=== PATIENT | female | born 1930 | race Caucasian/White ===

== ENCOUNTER 2017-01-07 20:26 | Observation (INO) | payer MEDICARE, BC ==
[2017-01-07] MEDS ORDERED: Haloperidol Lactate 5 MG/ML SDV IM ONE (20:27)
[2017-01-07] MEDS ORDERED: Haloperidol Lactate 5 MG/ML SDV ONE (20:28)
[2017-01-07] MEDS ORDERED: Sodium Chloride 0.9% 1,000 ML IV ONE (20:29)
[2017-01-07] MEDS ORDERED: LORazepam 2 MG/ML MDV IVPUSH ONE (21:01)
--- NOTE | 2017-01-07 21:16 | EDM.PDOC ---
ED HPI GENERAL MEDICAL PROBLEM - General Chief Complaint: Behavioral/Psych Stated Complaint: MEMORY LOSS Time Seen by Provider: 01/07/17 20:29 Source of Information: Reports: Family History Limitations: Reports: No Limitations - History of Present Illness INITIAL COMMENTS - FREE TEXT/NARRATIVE: HISTORY AND PHYSICAL: History of present illness: Patient is an 86-year-old female who presents to the emergency room by [facility] with concerns of altered mental status. The daughter who called the ambulance states that she has been yelling out, combative, and not acting herself. Daughter states that this has happened in the past several times and she was diagnosed with low sodium and UTI and required admission. Normal baseline for patient is ambulatory, alert but disoriented and needing minimal help with self-cares. He should does have a history of Alzheimer's disease. Upon arrival to the emergency room patient is yelling out, flailing her arms and hitting at staff as they are trying to obtain a blood pressure. Daughter states that the patient lives with multiple family members, they all monitor the patient as she has had multiple falls in the past. Daughter states the last fall was in August/September and had no consequences of that. Review of systems: As per history of present illness and below otherwise all systems reviewed and negative. Past medical history: As per history of present illness and as reviewed below otherwise noncontributory. Surgical history: As per history of present illness and as reviewed below otherwise noncontributory. Social history: No reported history of drug or alcohol abuse. Family history: As per history of present illness and as reviewed below otherwise noncontributory. Physical exam: Gen.: Disoriented patient who is yelling out nonsensical statements. Reports easy and even. HEENT: Atraumatic, normocephalic, pupils reactive, negative for conjunctival pallor or scleral icterus, mucous membranes dry, throat clear, neck supple, nontender, trachea midline. Lungs: Clear to auscultation, breath sounds equal bilaterally, chest nontender. Heart: S1S2, regular rate and rhythm Abdomen: Soft, nondistended, nontender. Negative for masses or hepatosplenomegaly. Negative for costovertebral tenderness. Pelvis: Stable nontender. Genitourinary: Deferred. Rectal: Deferred. Extremities: Atraumatic, moves all extremities per self, negative for cords or calf pain. Neurovascular unremarkable. No peripheral edema noted. Neuro: Awake, alert, oriented. Cranial nerves II through XII unremarkable. Cerebellum unremarkable. Motor and sensory unremarkable throughout. Exam nonfocal. Upon arrival patient was combative and not allowing nursing cares. 5 mg of Haldol IM was given. Dr. Marks was consulted on this case. He has agreed to admit this patient for observation. 1 gram of Rocephin was ordered for suspected UTI. Dr. Martinez is made aware of this patient and assumed care. Patient will be admitted for observation. Diagnostics: CBC, CMP, troponin, EKG, one view chest, head CT Therapeutics: Haldol IM IV fluid and Ativan Impression: Altered mental status Plan: Observation admission Definitive disposition and diagnosis as appropriate pending reevaluation and review of above. Onset: Today - Related Data Allergies Allergy/AdvReac Type Severity Reaction Status Date / Time morphine Allergy Hallucinati Verified 01/07/17 20:30 ons Penicillins Allergy Cannot Verified 12/14/13 13:25 Remember Home Meds: Home Meds Aspirin 81 mg PO DAILY 01/07/17 [History] Calcium Carbonate [Calcium] 1 tab PO DAILY 01/07/17 [History] Carboxymethylcellulose Sodium [Refresh Tears] 1 ml OP BID 01/07/17 [History] Levothyroxine 150 mcg PO ACBREAKFAST 01/07/17 [History] Losartan [Cozaar] 100 mg PO DAILY 01/07/17 [History] Multivitamin [Daily Multiple Vitamin] 1 tab PO DAILY 01/07/17 [History] Sertraline [Zoloft] 100 mg PO DAILY 01/07/17 [History] Cholecalciferol (Vitamin D3) [Vitamin D3] 1,000 units PO DAILY 01/08/17 [History ] Past Medical History HEENT History: Reports: Cataract, Glaucoma, Impaired Vision, Macular Degeneration Cardiovascular History: Reports: Hypertension, Pacemaker Respiratory History: Reports: None Gastrointestinal History: Reports: GERD Genitourinary History: Reports: None 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: Neurological History: Reports: Alzheimers Disease Psychiatric History: Reports: Alzheimers Disease, Dementia Endocrine/Metabolic History: Reports: Hyperthyroidism Hematologic History: Reports: None Immunologic History: Reports: None Oncologic (Cancer) History: Reports: None Dermatologic History: Reports: None - Infectious Disease History Infectious Disease History: Reports: Chicken Pox - Past Surgical History Head Surgeries/Procedures: Reports: None HEENT Surgical History: Reports: Cataract Surgery Cardiovascular Surgical History: Reports: None GI Surgical History: Reports: None Female Surgical History: Reports: Hysterectomy Musculoskeletal Surgical History: Reports: Other (See Below) Other Musculoskeletal Surgeries/Procedures:: fracture: left pelvis, bilateral shoulder , right femus, right wrist ( 2x) left hip replacement, lumbar decompression and discetomy, left wrist fracture. Social & Family History - Tobacco Use Smoking Status *Q: Never Smoker Used Tobacco, but Quit: No - Caffeine Use Caffeine Use: Reports: Coffee - Recreational Drug Use Recreational Drug Use: No ED ROS GENERAL - Review of Systems Review Of Systems: ROS reveals no pertinent complaints other than HPI. - Physical Exam Exam: See Below (See dictation) Course - Vital Signs Last Recorded V/S: Last Vital Signs Temp 36.5 C 01/08/17 15:38 Pulse 79 01/08/17 15:38 Resp 20 01/08/17 15:38 BP 130/62 01/08/17 15:38 Pulse Ox 95 01/08/17 15:38 - Orders/Labs/Meds Orders: Medication Orders Acetaminophen (Tylenol) 650 mg PO Q6H PRN PRN Reason: Pain Artificial Tears (Refresh Plus 0.5%) 0 each EYEBOTH BID [facility] Last Admin: 01/08/17 09:49 Dose: Not Given Admin: 01/08/17 00:32 Dose: Not Given Aspirin (Aspirin) 81 mg PO DAILY [facility] Last Admin: 01/08/17 09:50 Dose: Not Given Calcium Carbonate/Glycine (Tums) 500 mg PO DAILY [facility] Last Admin: 01/08/17 09:50 Dose: Not Given Cholecalciferol (Vitamin D3) 1,000 units PO DAILY [facility] Last Admin: 01/08/17 09:50 Dose: Not Given Sodium Chloride (Normal Saline) 1,000 mls @ 50 mls/hr IV ASDIRECTED [facility] Last Admin: 01/08/17 00:05 Dose: 50 mls/hr Ceftriaxone Sodium/Dextrose 1 (gm/ Premix) 50 mls @ 100 mls/hr IV Q24H [facility] Last Admin: 01/08/17 11:45 Dose: 100 mls/hr Levothyroxine Sodium (Levothyroxine) 150 mcg PO JoeluWeThFrSa@0730 [facility] Levothyroxine Sodium (Levothyroxine) 75 mcg PO Almanzar@0730 [facility] Lorazepam (Ativan) 1 mg IVPUSH Q6H PRN PRN Reason: Agitation Losartan Potassium (Cozaar) 100 mg PO DAILY [facility] Last Admin: 01/08/17 09:48 Dose: Not Given Multivitamins/Minerals/Vitamin C (Tab-A-Ericka) 1 tab PO DAILY [facility] Last Admin: 01/08/17 09:50 Dose: Not Given Oxycodone HCl (Oxycodone) 5 mg PO Q4H PRN PRN Reason: Pain Sertraline HCl (Zoloft) 100 mg PO DAILY [facility] Last Admin: 01/08/17 09:50 Dose: Not Given Labs: Laboratory Tests 01/07/17 01/07/17 01/07/17 Range/Units 21:12 21:12 21:12 WBC 14.46 H (4.0-11.0) K/uL RBC 4.43 (4.30-5.90) M/uL Hgb 13.3 (12.0-16.0) g/dL Hct 39.1 (36.0-46.0) % MCV 88.3 (80.0-98.0) fL MCH 30.0 (27.0-32.0) pg MCHC 34.0 (31.0-37.0) g/dL RDW Std Deviation 47.8 (28.0-62.0) fl RDW Coeff of Meir 15 (11.0-15.0) % Plt Count 203 (150-400) K/uL MPV 10.60 (7.40-12.00) fL Neut % (Auto) 89.9 H (48.0-80.0) % Lymph % (Auto) 3.9 L (16.0-40.0) % [place] % (Auto) 5.8 (0.0-15.0) % Eos % (Auto) 0.1 (0.0-7.0) % Baso % (Auto) 0.3 (0.0-1.5) % Neut # (Auto) 13.0 H (1.4-5.7) K/uL Lymph # (Auto) 0.6 (0.6-2.4) K/uL [place] # (Auto) 0.8 (0.0-0.8) K/uL Eos # (Auto) 0.0 (0.0-0.7) K/uL Baso # (Auto) 0.0 (0.0-0.1) K/uL Nucleated RBC % 0.0 /100WBC Nucleated RBCs # 0 K/uL Sodium 135 L (136-146) mmol/L Potassium 3.9 (3.5-5.1) mmol/L Chloride 99 (98-110) mmol/L Carbon Dioxide 26 (21-31) mmol/L BUN 18 (6.0-23.0) mg/dL Creatinine 0.8 (0.6-1.5) mg/dL Est Cr Clr Drug Dosing TNP Estimated GFR (MDRD) > 60.0 ml/min Glucose 185 H (60-110) mg/dL Calcium 9.1 (8.8-10.8) mg/dL Total Bilirubin 0.7 (0.1-1.5) mg/dL AST 25 (5-40) IU/L ALT 17 (8-54) IU/L Alkaline Phosphatase 62 (40-150) Troponin I < 0.10 (0.0-0.29) NG/ML Total Protein 6.4 (6.0-8.0) g/dL Albumin 3.7 (3.4-4.8) g/dL Globulin 2.7 (2.0-3.5) g/dL Albumin/Globulin Ratio 1.4 (1.3-2.8) Meds: Medications Generic Name Dose Route Start Last Admin Trade Name Freq PRN Reason Stop Dose Admin Acetaminophen 650 mg 01/07/17 23:53 Tylenol PO Q6H PRN Pain Artificial Tears 0 each 01/08/17 00:07 01/08/17 09:49 Refresh Plus 0.5% EYEBOTH Not Given BID [facility] Aspirin 81 mg 01/08/17 09:00 01/08/17 09:50 Aspirin PO Not Given DAILY [facility] Calcium Carbonate/Glycine 500 mg 01/08/17 09:00 01/08/17 09:50 Tums PO Not Given DAILY [facility] Cholecalciferol 1,000 units 01/08/17 09:00 01/08/17 09:50 Vitamin D3 PO Not Given DAILY [facility] Sodium Chloride 1,000 mls @ 50 mls/hr 01/07/17 23:45 01/08/17 00:05 Normal Saline IV 50 mls/hr ASDIRECTED [facility] Administration Ceftriaxone Sodium/Dextrose 1 50 mls @ 100 mls/hr 01/08/17 12:00 01/08/17 11: 45 gm/ Premix IV 100 mls/hr Q24H [facility] Administration Levothyroxine Sodium 150 mcg 01/09/17 07:30 Levothyroxine PO MoTuWeThFrSa@0730 [facility] Levothyroxine Sodium 75 mcg 01/12/17 07:30 Levothyroxine PO Almanzar@0730 [facility] Lorazepam 1 mg 01/07/17 23:53 Ativan IVPUSH Q6H PRN Agitation Losartan Potassium 100 mg 01/08/17 09:00 01/08/17 09:48 Cozaar PO Not Given DAILY [facility] Multivitamins/Minerals/Vitamin C 1 tab 01/08/17 09:00 01/08/17 09:50 Tab-A-Ericka PO Not Given DAILY [facility] Oxycodone HCl 5 mg 01/07/17 23:53 Oxycodone PO Q4H PRN Pain Sertraline HCl 100 mg 01/08/17 09:00 01/08/17 09:50 Zoloft PO Not Given DAILY [facility] Discontinued Medications Generic Name Dose Route Start Last Admin Trade Name Freq PRN Reason Stop Dose Admin Haloperidol Lactate 5 mg 01/07/17 20:27 01/07/17 21:34 Haldol IM 01/07/17 20:28 5 mg ONETIME ONE Administration Haloperidol Lactate Confirm 01/07/17 20:28 01/08/17 00:09 Haldol Administered 01/07/17 20:29 Not Given Dose 5 mg .ROUTE .STK-MED ONE Sodium Chloride 1,000 mls @ 999 mls/hr 01/07/17 20:29 01/07/17 21:16 Normal Saline IV 01/07/17 21:29 999 mls/hr STAT ONE Administration Ceftriaxone Sodium/Dextrose 1 50 mls @ 100 mls/hr 01/07/17 22:09 01/07/17 22: 57 gm/ Premix IV 01/07/17 22:38 100 mls/hr ONETIME ONE Administration Levothyroxine Sodium 150 mcg 01/08/17 07:00 01/08/17 06:45 Levothyroxine PO Not Given DAILY@0700 [facility] Lorazepam 1 mg 01/07/17 21:01 01/07/17 21:33 Ativan IVPUSH 01/07/17 21:02 1 mg ONETIME ONE Administration Departure - Departure Time of Disposition: 22:13 Disposition: Refer to Observation Clinical Impression: Altered mental status Qualifiers: Altered mental status type: delirium Qualified Code(s): R41.0 - Disorientation , unspecified - Discharge Information
[2017-01-07 21:40] LABS: CHLORIDE,CL 99 mmol/L (98-110); SODIUM,NA 135 mmol/L (136-146)
[2017-01-07] MEDS ORDERED: cefTRIAXone 1 GM in Premix Bag 1 BAG IV ONE (22:09)
[2017-01-07] MEDS ORDERED: oxyCODONE 5 MG Tab PO PRN (23:53)
[2017-01-07] MEDS ORDERED: Acetaminophen 325 MG Tab PO PRN (23:53)
[2017-01-07] MEDS ORDERED: LORazepam 2 MG/ML MDV IVPUSH PRN (23:53)
[2017-01-08] MEDS: Sodium Chloride 0.9% 1,000 ML IV SCH ×2 (00:05→18:33)
[2017-01-08] MEDS: Carboxymethylcellulose Sodium 0.5% Ophth Soln 0.4 ML UD Box of 30 EYEBOTH SCH ×4 (00:32→20:44)
[2017-01-08] MEDS: Levothyroxine 150 MCG Tab PO SCH ×2 (06:41→06:45)
[2017-01-08] MEDS: Aspirin 81 MG Tab.Chew PO SCH ×2 (09:18→09:50)
[2017-01-08] MEDS: Calcium Carbonate 500 MG Tab.Chew PO SCH ×2 (09:18→09:50)
--- NOTE | 2017-01-08 09:18 | PCM.HP ---
H&P History of Present Illness - General Date of Service: 01/08/17 Admit Problem/Dx: Admission Diagnosis/Problem Admission Diagnosis/Problem Altered mental status Source of Information: Family History Limitations: Reports: Altered Mental Status, Combative/Threatening, Other (Dementia) - History of Present Illness Initial Comments - Free Text/Narative: The patient is an 86-year-old lady who had presented to the emergency department yesterday evening by ambulance. The patient has severe dementia and she is not communicative therefore information has been taking from her charting as well as her daughter who is with her. The patient's daughter had reported that the patient had been in her usual state of health and had been eating up until yesterday evening. She started become more confused and the patient became more aggressive and combative which has not been in her usual state. For the most part the patient has exhibited no signs or symptoms of fever or chills or infections. Patient had been doing well, relatively speaking , up until yesterday evening. Patient's daughter says that her mother symptoms have been getting progressively worse over the past several months. The patient does have good social support system and she is never alone at home. Onset of Symptoms: Reports: Sudden Duration of Symptoms: Reports: Day(s):, Getting Worse Location: Reports: Generalized Improves with: Reports: None Worsens with: Reports: None Associated Symptoms: Reports: Confusion, Other (Combative) - Related Data Allergies/Adverse Reactions: Allergies Allergy/AdvReac Type Severity Reaction Status Date / Time morphine Allergy Hallucinati Verified 01/07/17 20:30 ons Penicillins Allergy Cannot Verified 12/14/13 13:25 Remember Home Medications: Home Meds Aspirin 81 mg PO DAILY 01/07/17 [History] Calcium Carbonate [Calcium] 1 tab PO DAILY 01/07/17 [History] Carboxymethylcellulose Sodium [Refresh Tears] 1 ml OP BID 01/07/17 [History] Levothyroxine 150 mcg PO ACBREAKFAST 01/07/17 [History] Losartan [Cozaar] 100 mg PO DAILY 01/07/17 [History] Multivitamin [Daily Multiple Vitamin] 1 tab PO DAILY 01/07/17 [History] Sertraline [Zoloft] 100 mg PO DAILY 01/07/17 [History] Cholecalciferol (Vitamin D3) [Vitamin D3] 1,000 units PO DAILY 01/08/17 [History ] Past Medical History HEENT History: Reports: Cataract, Glaucoma, Impaired Vision, Macular Degeneration Cardiovascular History: Reports: Hypertension, Pacemaker Respiratory History: Reports: None Gastrointestinal History: Reports: GERD Genitourinary History: Reports: None 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: Neurological History: Reports: Alzheimers Disease Psychiatric History: Reports: Alzheimers Disease, Dementia Endocrine/Metabolic History: Reports: Hyperthyroidism Hematologic History: Reports: None Immunologic History: Reports: None Oncologic (Cancer) History: Reports: None Dermatologic History: Reports: None - Infectious Disease History Infectious Disease History: Reports: Chicken Pox - Past Surgical History Head Surgeries/Procedures: Reports: None HEENT Surgical History: Reports: Cataract Surgery Cardiovascular Surgical History: Reports: Pacer GI Surgical History: Reports: None Female Surgical History: Reports: Hysterectomy Musculoskeletal Surgical History: Reports: Other (See Below) Other Musculoskeletal Surgeries/Procedures:: fracture: left pelvis, bilateral shoulder , right femus, right wrist ( 2x) left hip replacement, lumbar decompression and discetomy, left wrist fracture. Social & Family History - Family History Family Medical History: Noncontributory - Tobacco Use Smoking Status *Q: Never Smoker Used Tobacco, but Quit: No Second Hand Smoke Exposure: No - Caffeine Use Caffeine Use: Reports: Coffee - Recreational Drug Use Recreational Drug Use: No H&P Review of Systems - Review of Systems: Review Of Systems: Unable To Obtain (Worsening dementia) Exam - Exam Exam: See Below - Vital Signs Vital Signs: Last Vital Signs Temp 37.3 C 01/08/17 04:00 Pulse 99 01/08/17 04:00 Resp 16 01/08/17 04:00 BP 109/48 L 01/08/17 04:00 Pulse Ox 94 L 01/08/17 04:00 Weight: 45 kg - Exam Quality Assessment: Other (Not responsive to commands, repeatedly says "no" to everything). No: Supplemental Oxygen General: No: Alert, Oriented, Cooperative HEENT: Conjunctiva Clear, Mucosa Moist & [place] (Dry) Neck: Supple, Trachea Midline Lungs: Normal Respiratory Effort, Rales Cardiovascular: Regular Rate, Irregular Rhythm GI/Abdominal Exam: Normal Bowel Sounds, No Distention Back Exam: Decreased Range of Motion Extremities: No Pedal Edema Skin: Warm Neuro Extensive - Mental Status: Disorientation to Person, Disorientation to Place, Disorientation to Time. No: Alert, Oriented x3, Opens Eyes to Commands Psychiatric: No: Normal Affect, Normal Mood - Patient Data Lab Results Last 24 hrs: Laboratory Results - last 24 hr 01/08/17 Range/Units 00:30 Urine Color YELLOW Urine Appearance SLT CLOUDY Urine pH 7.0 (5.0-8.0) Ur Specific [place] 1.015 (1.001-1.035) Urine Protein NEGATIVE (NEGATIVE) mg/dL Urine Glucose (UA) NEGATIVE (NEGATIVE) mg/dL Urine Ketones TRACE H (NEGATIVE) mg/dL Urine Occult Blood NEGATIVE (NEGATIVE) Urine Nitrite NEGATIVE (NEGATIVE) Urine Bilirubin NEGATIVE (NEGATIVE) Urine Urobilinogen 0.2 (<2.0) EU/dL Ur Leukocyte Esterase SMALL (NEGATIVE) Urine RBC 1-2 (0-2/HPF) Urine WBC 12-15 (0-5/HPF) Ur Epithelial Cells FEW (NONE-FEW) Urine Bacteria 1+ H (NEGATIVE) Result Diagrams: 01/07/17 21:12 01/07/17 21:12 *Q Meaningful Use (ADM) - VTE *Q VTE Criteria *Q: - Stroke *Q Stroke Criteria *Q: - AMI *Q AMI Criteria *Q: - Problem List (1) Altered mental status SNOMED Code(s): 368282927 ICD Code: R41.82 - ALTERED MENTAL STATUS, UNSPECIFIED Status: Acute Priority: High Current Visit: Yes Qualifiers: Altered mental status type: delirium Qualified Code(s): R41.0 - Disorientation, unspecified (2) Dementia SNOMED Code(s): 21460484 ICD Code: F03.90 - UNSPECIFIED DEMENTIA WITHOUT BEHAVIORAL DISTURBANCE Status: Chronic Priority: High Current Visit: Yes Qualifiers: Dementia type: vascular dementia Dementia behavioral disturbance: with behavioral disturbance Qualified Code(s): F01.51 - Vascular dementia with behavioral disturbance (3) Urinary tract infection SNOMED Code(s): 46225587 ICD Code: N39.0 - URINARY TRACT INFECTION, SITE NOT SPECIFIED Status: Acute Priority: High Current Visit: Yes Qualifiers: Urinary tract infection type: site unspecified Hematuria presence: without hematuria Qualified Code(s): N39.0 - Urinary tract infection, site not specified (4) Dehydration SNOMED Code(s): 43903487 ICD Code: E86.0 - DEHYDRATION Status: Acute Priority: High Current Visit: Yes Problem List Initiated/Reviewed/Updated: Yes Orders Last 24hrs: Active Orders 24 hr Category Date Time Status Communication Order [RC] DAILY Care 01/07/17 23:30 Active Insert Urinary Catheter [OM.PC] Q24H Care 01/07/17 23:55 Ordered Urinary Catheter Assessment [RC] ASDIRECTED Care 01/07/17 23:57 Active Regular Diet [DIET] Diet 01/08/17 Breakfast Active CBC WITH AUTO DIFF [HEME] Routine Lab 01/08/17 05:00 Ordered COMPREHENSIVE METABOLIC PN,CMP [CHEM] Routine Lab 01/08/17 05:00 Ordered MAGNESIUM [CHEM] Routine Lab 01/08/17 05:00 Ordered PHOSPHORUS [CHEM] Routine Lab 01/08/17 05:00 Ordered TSH [CHEM] Routine Lab 01/08/17 05:00 Ordered Acetaminophen [Tylenol] Med 01/07/17 23:53 Active 650 mg PO Q6H PRN Aspirin Med 01/08/17 09:00 Active 81 mg PO DAILY Calcium Carbonate [Tums] Med 01/08/17 09:00 Active 500 mg PO DAILY Carboxymethylcellulose Sodium [Refresh Plus 0.5%] Med 01/08/17 00:07 Active 0 each EYEBOTH BID Cholecalciferol (Vitamin D3) [Vitamin D3] Med 01/08/17 09:00 Active 1,000 units PO DAILY LORazepam [Ativan] Med 01/07/17 23:53 Active 1 mg IVPUSH Q6H PRN Levothyroxine Med 01/09/17 07:30 Active 150 mcg PO MoTuWeThFrSa@0730 Levothyroxine Med 01/12/17 07:30 Active 75 mcg PO Almanzar@0730 Losartan [Cozaar] Med 01/08/17 09:00 Active 100 mg PO DAILY Multivitamins [Tab-A-Ericka] Med 01/08/17 09:00 Active 1 tab PO DAILY Sertraline [Zoloft] Med 01/08/17 09:00 Active 100 mg PO DAILY Sodium Chloride 0.9% [Normal Saline] 1,000 ml Med 01/07/17 23:45 Active IV ASDIRECTED oxyCODONE Med 01/07/17 23:53 Active 5 mg PO Q4H PRN Medication Orders Acetaminophen (Tylenol) 650 mg PO Q6H PRN PRN Reason: Pain Artificial Tears (Refresh Plus 0.5%) 0 each EYEBOTH BID [facility] Last Admin: 01/08/17 00:32 Dose: Not Given Aspirin (Aspirin) 81 mg PO DAILY [facility] Calcium Carbonate/Glycine (Tums) 500 mg PO DAILY [facility] Cholecalciferol (Vitamin D3) 1,000 units PO DAILY [facility] Sodium Chloride (Normal Saline) 1,000 mls @ 50 mls/hr IV ASDIRECTED [facility] Last Admin: 01/08/17 00:05 Dose: 50 mls/hr Levothyroxine Sodium (Levothyroxine) 150 mcg PO MoTuWeThFrSa@0730 [facility] Levothyroxine Sodium (Levothyroxine) 75 mcg PO Almanzar@0730 [facility] Lorazepam (Ativan) 1 mg IVPUSH Q6H PRN PRN Reason: Agitation Losartan Potassium (Cozaar) 100 mg PO DAILY [facility] Multivitamins/Minerals/Vitamin C (Tab-A-Ericka) 1 tab PO DAILY [facility] Oxycodone HCl (Oxycodone) 5 mg PO Q4H PRN PRN Reason: Pain Sertraline HCl (Zoloft) 100 mg PO DAILY [facility] Assessment/Plan Comment:: The patient is an 86-year-old lady who is been living at home with family members who is presented acutely with alteration in her mental status. Patient has been combative at home. The patient does have indication of urinary tract infection and she had been given 1 g of Rocephin in the emergency department. I' ve recommended that we continue with 1 g of Rocephin IV daily to help this. For now the patient will be kept nothing by mouth as she is currently spitting out all of her oral medications. I had a long explanation with the patient's daughter and indicated that this can be likely due to an acute urinary tract infection causing alterations from her normally demented baseline or this can be a transient effect of the dementia itself. I have recommended that the patient may be receiving some benefit from transfer to correction and this is something that should be considered. The patient's daughter does say that she has someone with her 24 hours a day well at home. I will also at this time gently hydrate the patient to avoid fluid overload. Her vital signs be monitored accordingly. The patient will be evaluated by physical therapy although I suspect that the patient will be somewhat uncooperative. I've elected to admit the patient as an observation status although this may change depending on lack of improvement with the patient's mental status. I've also ordered testing for her TSH, CMP and CBC. The patient's overall treatment plan will be adjusted accordingly. The patient may be appropriate for discharge in 1- 2 days depending on improvement of her sensorium.
[2017-01-08] MEDS: Cholecalciferol (Vitamin D3) 1,000 Unit Tab PO SCH ×2 (09:19→09:50)
[2017-01-08] MEDS: Sertraline 100 MG Tab PO SCH ×2 (09:19→09:50)
[2017-01-08] MEDS: Multivitamin Tab PO SCH ×2 (09:19→09:50)
[2017-01-08] MEDS: Losartan 50 MG Tab PO SCH (09:48)
--- NOTE | 2017-01-08 10:40 | CR ---
EXAM DATE: 01/07/17 PATIENT'S AGE: 86 Patient: NIMO MATTSON Facility: [place], [place] Site . Site : 1930 Study: XRay Chest [id number]/17/2017 10:18:52 PM Ordering Physician: Doctor Oliveira Final Report: HISTORY: Altered mental status. FINDINGS: AP portable chest radiograph is compared with 18 March 2010. There has been interval placement of left subclavian ICD implant with two intact leads. Cardiac silhouette is mildly enlarged. Pulmonary vasculature is free of cephalization. Calcifications in the aortic knob. There is a 2.8 cm opacity seen in the right suprahilar just inferior to the medial right clavicle. No pleural effusion is seen. Old right-sided rib fractures are present. There is old proximal humeral fracture with ORIF of the proximal left humerus. IMPRESSION: 1. Interval placement of left subclavian ICD implant. 2. Mild cardiomegaly without CHF. 3. Right suprahilar opacity. This may reflect a minimal infiltrate. Follow up radiograph after treatment is recommended to document resolution and exclude mass lesion. Dictated by Janeth Osuna MD @ 01/07/2017 10:44:56 PM Dictated by: Janeth Osuna MD @ 01/07/2017 22:45:04 (Electronic Signature) Report Signed by Proxy. [facility]
--- NOTE | 2017-01-08 10:56 | CT ---
EXAM DATE: 01/07/17 PATIENT'S AGE: 86 Patient: NIMO MATTSON Facility: [place], [place] Site . Site : 1930 Study: CT Head [id number] 11:17:31 PM Ordering Physician: Doctor Oliveira Final Report: INDICATION: Change in mental status. TECHNIQUE: CT Head without i.v. contrast. COMPARISON: Prior head CT dated 03/18/2010. FINDINGS: L underlying age-related atrophy with scattered areas of periventricular and deep white matter low attenuation, compatible with moderate degree of chronic microvascular disease. [place] white matter differentiation preserved. No evidence of acute territorial infarct. No intracranial hemorrhage, mass effect, or abnormal extra-axial fluid collection. IMPRESSION: 1. Age-related atrophy and chronic microvascular disease. No acute intracranial abnormality identified. Progressive microvascular changes from comparison head CT dated 03/18/2010. Dictated by Adria Muro MD @ 01/07/2017 11:27:46 PM Dictated by: Adria Muro MD @ 01/07/2017 23:27:51 (Electronic Signature) Report Signed by Proxy. [facility]
[2017-01-08] MEDS: cefTRIAXone 1 GM in Premix Bag 1 BAG IV SCH (11:45)
[2017-01-09 06:06] LABS: CHLORIDE,CL 106 mmol/L (98-110); SODIUM,NA 139 mmol/L (136-146)
[2017-01-09] MEDS ORDERED: Levothyroxine 150 MCG Tab PO SCH (07:30)
[2017-01-09] MEDS: Aspirin 81 MG Tab.Chew PO SCH (08:24)
[2017-01-09] MEDS: Multivitamin Tab PO SCH (08:24)
[2017-01-09] MEDS: Sertraline 100 MG Tab PO SCH (08:24)
[2017-01-09] MEDS: Cholecalciferol (Vitamin D3) 1,000 Unit Tab PO SCH (08:24)
[2017-01-09] MEDS: Losartan 50 MG Tab PO SCH (08:25)
[2017-01-09] MEDS: Carboxymethylcellulose Sodium 0.5% Ophth Soln 0.4 ML UD Box of 30 EYEBOTH SCH (08:25)
[2017-01-09] MEDS: Calcium Carbonate 500 MG Tab.Chew PO SCH (08:26)
[2017-01-09] MEDS: cefTRIAXone 1 GM in Premix Bag 1 BAG IV SCH (11:41)
--- NOTE | 2017-01-09 12:56 | PCM.DCSUM1 ---
Discharge Summary - Hospital Course Brief History: This 86-year-old lady with pmh of severe dementia presented to the ED by ambulance with complaints of AMS from baseline. The patient's daughter had reported that the patient had been in her usual state of health and had been eating up until yesterday evening. She started become more confused and the patient became more aggressive and combative which has not been in her usual state. For the most part the patient has exhibited no signs or symptoms of fever or chills or infections. Patient had been doing well, relatively speaking, up until yesterday evening. Patient's daughter says that her mother symptoms have been getting progressively worse over the past several months. The patient does have good social support system and she is never alone at home. - Discharge Data Discharge Date: 01/09/17 Discharge Disposition: Home, Self-Care 01 Condition: Good - Patient Summary/Data Consults: Consultations 01/08/17 09:18 Consult to Physical Therapy [PT Evaluation and Treatment] [CONS] Routine - Patient Instructions Diet: Regular Diet as Tolerated Activity: As Tolerated Showering/Bathing: May Shower Notify Provider of: Fever, Increased Pain, Swelling and Redness, Drainage, Nausea and/or Vomiting - Discharge Plan Prescriptions/Med Rec: Cefdinir [Omnicef] 300 mg PO BID #14 cap Home Medications: Home Meds Aspirin 81 mg PO DAILY 01/07/17 [History] Calcium Carbonate [Calcium] 1 tab PO DAILY 01/07/17 [History] Carboxymethylcellulose Sodium [Refresh Tears] 1 ml OP BID 01/07/17 [History] Levothyroxine 150 mcg PO MOTUWETHFRSA@0730 01/07/17 [History] Losartan [Cozaar] 100 mg PO DAILY 01/07/17 [History] Multivitamin [Daily Multiple Vitamin] 1 tab PO DAILY 01/07/17 [History] Sertraline [Zoloft] 100 mg PO DAILY 01/07/17 [History] Cholecalciferol (Vitamin D3) [Vitamin D3] 1,000 units PO DAILY 01/08/17 [History ] Cefdinir [Omnicef] 300 mg PO BID #14 cap 01/09/17 [Rx] Levothyroxine 75 mcg PO ALMANZAR@0730 01/09/17 [History] Patient Handouts: Cefdinir capsules, Urinary Tract Infection, Adult, Easy-to- Read Referrals: [facility] [Outside] Jenn Khalil, [employer] MEMBER [Ordering Only Provider] - 01/20/17 1:45 pm - Discharge Summary/Plan Comment DC Time >30 min.: No Discharge Summary/Plan Comment: Discharge Diagnoses UTI AMS-resolved Severe dementia Moni was admitted and treated for UTI, which is likely cause of AMS. Today she is alert and almost back to baseline per daughter, Kenia's, report. She would like to take her back home today if possible as long as she is able to get up and ambulate to get to the bathroom. PT visited with patient today and she ambulated well with SBA and walker. She uses a cane at home which she does well with per daughter. She was treated with Rocephin during her stay. UC is pending as discharge, will monitor and call if needed to changed antibiotics. She will be sent home on Cefdnir 300 mg BID x 7 days. She is to follow up with PCP in 1 week. Return to ED or clinic if concerns should arise. Teran removed and patient voided prior to discharge. - General Info Date of Service: 01/09/17 Admission Dx/Problem (Free Text: Admission Diagnosis/Problem Admission Diagnosis/Problem Altered mental status Subjective Update: Patient alert and sitting in chair eating breakfast. She is very talkative and no longer combative. Pat daughter at bedside reports she is near baseline and hoping to take her home today. Moni denies any pain or SOB. She reports she is feeling just fine. Functional Status: Reports: Pain Controlled, Tolerating Diet, Ambulating, Urinating - Review of Systems General: Reports: No Symptoms. Denies: Fever Pulmonary: Reports: No Symptoms. Denies: Shortness of Breath Cardiovascular: Reports: No Symptoms. Denies: Chest Pain Gastrointestinal: Reports: No Symptoms. Denies: Abdominal Pain, Nausea, Vomiting Neurological: Reports: No Symptoms. Denies: Confusion Psychiatric: Reports: No Symptoms. Denies: Confusion, Agitation - Patient Data Vitals - Most Recent: Last Vital Signs Temp 99.2 F 01/09/17 11:58 Pulse 81 01/09/17 11:58 Resp 18 01/09/17 11:58 BP 134/92 H 01/09/17 11:58 Pulse Ox 96 01/09/17 11:58 Weight - Most Recent: 45 kg I&O - Last 24 hours: Intake & Output 01/08/17 01/09/17 01/09/17 22:59 06:59 14:59 Intake Total 963 1367 Output Total 247 3245 Balance 788 -458 Lab Results - Last 24 hrs: Laboratory Results - last 24 hr 01/09/17 01/09/17 Range/Units 05:36 05:36 WBC 8.37 (4.0-11.0) K/uL RBC 4.57 (4.30-5.90) M/uL Hgb 13.5 (12.0-16.0) g/dL Hct 40.5 (36.0-46.0) % MCV 88.6 (80.0-98.0) fL MCH 29.5 (27.0-32.0) pg MCHC 33.3 (31.0-37.0) g/dL RDW Std Deviation 48.1 (28.0-62.0) fl RDW Coeff of Meir 15 (11.0-15.0) % Plt Count 181 (150-400) K/uL MPV 10.10 (7.40-12.00) fL Neut % (Auto) 64.7 (48.0-80.0) % Lymph % (Auto) 16.4 (16.0-40.0) % Otero % (Auto) 14.1 (0.0-15.0) % Eos % (Auto) 3.7 (0.0-7.0) % Baso % (Auto) 1.1 (0.0-1.5) % Neut # (Auto) 5.4 (1.4-5.7) K/uL Lymph # (Auto) 1.4 (0.6-2.4) K/uL Otero # (Auto) 1.2 H (0.0-0.8) K/uL Eos # (Auto) 0.3 (0.0-0.7) K/uL Baso # (Auto) 0.1 (0.0-0.1) K/uL Nucleated RBC % 0.0 /100WBC Nucleated RBCs # 0 K/uL Sodium 139 (136-146) mmol/L Potassium 3.5 (3.5-5.1) mmol/L Chloride 106 (98-110) mmol/L Carbon Dioxide 26 (21-31) mmol/L BUN 10 (6.0-23.0) mg/dL Creatinine 0.7 (0.6-1.5) mg/dL Est Cr Clr Drug Dosing 40.22 mL/min Estimated GFR (MDRD) > 60.0 ml/min Glucose 82 (60-110) mg/dL Calcium 8.4 L (8.8-10.8) mg/dL Med Orders - Current: Current Medications Acetaminophen (Tylenol) 650 mg PO Q6H PRN PRN Reason: Pain Artificial Tears (Refresh Plus 0.5%) 0 each EYEBOTH BID [facility] Last Admin: 01/09/17 08:25 Dose: 1 drop Aspirin (Aspirin) 81 mg PO DAILY [facility] Last Admin: 01/09/17 08:24 Dose: 81 mg Calcium Carbonate/Glycine (Tums) 500 mg PO DAILY [facility] Last Admin: 01/09/17 08:26 Dose: 500 mg Cholecalciferol (Vitamin D3) 1,000 units PO DAILY [facility] Last Admin: 01/09/17 08:24 Dose: 1,000 units Sodium Chloride (Normal Saline) 1,000 mls @ 50 mls/hr IV ASDIRECTED [facility] Last Admin: 01/08/17 18:33 Dose: 50 mls/hr Ceftriaxone Sodium/Dextrose 1 (gm/ Premix) 50 mls @ 100 mls/hr IV Q24H [facility] Last Admin: 01/09/17 11:41 Dose: 100 mls/hr Levothyroxine Sodium (Levothyroxine) 150 mcg PO MoTuWeThFrSa@0730 [facility] Last Admin: 01/09/17 06:51 Dose: 150 mcg Levothyroxine Sodium (Levothyroxine) 75 mcg PO Almanzar@0730 [facility] Lorazepam (Ativan) 1 mg IVPUSH Q6H PRN PRN Reason: Agitation Last Admin: 01/08/17 19:51 Dose: 1 mg Losartan Potassium (Cozaar) 100 mg PO DAILY [facility] Last Admin: 01/09/17 08:25 Dose: 100 mg Multivitamins/Minerals/Vitamin C (Tab-A-Ericka) 1 tab PO DAILY [facility] Last Admin: 01/09/17 08:24 Dose: 1 tab Oxycodone HCl (Oxycodone) 5 mg PO Q4H PRN PRN Reason: Pain Sertraline HCl (Zoloft) 100 mg PO DAILY [facility] Last Admin: 01/09/17 08:24 Dose: 100 mg Discontinued Medications Haloperidol Lactate (Haldol) 5 mg IM ONETIME ONE Stop: 01/07/17 20:28 Last Admin: 01/07/17 21:34 Dose: 5 mg Haloperidol Lactate (Haldol) Confirm Administered Dose 5 mg .ROUTE .STK-MED ONE Stop: 01/07/17 20:29 Last Admin: 01/08/17 00:09 Dose: Not Given Sodium Chloride (Normal Saline) 1,000 mls @ 999 mls/hr IV STAT ONE Stop: 01/07/17 21:29 Last Admin: 01/07/17 21:16 Dose: 999 mls/hr Ceftriaxone Sodium/Dextrose 1 (gm/ Premix) 50 mls @ 100 mls/hr IV ONETIME ONE Stop: 01/07/17 22:38 Last Admin: 01/07/17 22:57 Dose: 100 mls/hr Levothyroxine Sodium (Levothyroxine) 150 mcg PO DAILY@0700 [facility] Last Admin: 01/08/17 06:45 Dose: Not Given Lorazepam (Ativan) 1 mg IVPUSH ONETIME ONE Stop: 01/07/17 21:02 Last Admin: 01/07/17 21:33 Dose: 1 mg - Exam General: Reports: Alert, Oriented (to baseline, self), Cooperative, No Acute Distress Lungs: Reports: Clear to Auscultation, Normal Respiratory Effort Cardiovascular: Reports: Regular Rate, Regular Rhythm GI/Abdominal Exam: Normal Bowel Sounds, Soft, Non-Tender, No Organomegaly, No Distention, No Abnormal Bruit, No Mass, Pelvis Stable Extremities: Normal Inspection, Normal Range of Motion, Non-Tender, No Pedal Edema, Normal Capillary Refill Skin: Reports: Warm, Dry, Intact Psy/Mental Status: Reports: Alert, Normal Affect, Normal Mood *Q Meaningful Use (DIS) - VTE *Q VTE Criteria *Q: - Stroke *Q Stroke Criteria *Q: - AMI *Q AMI Criteria *Q:
[2017-01-12] MEDS ORDERED: Levothyroxine 75 MCG Tab PO SCH (07:30)
== END 2017-01-09 14:40 | disposition home or self-care (01) ==
LOC: MW.ED 20:26 → MW.MS 22:07
PROVIDERS: ADMIT Internal Medicine; ATTEND Internal Medicine
DX: R41.82 Altered mental status, unspecified (principal); N39.0 Urinary tract infection, site not specified; F01.51 Vascular dementia, unspecified severity, with behavioral disturbance; F02.81 Dementia in other diseases classified elsewhere, unspecified severity, with behavioral disturbance; G30.9 Alzheimer's disease, unspecified; E86.0 Dehydration; I10 Essential (primary) hypertension; E05.90 Thyrotoxicosis, unspecified without thyrotoxic crisis or storm; Z79.82 Long term (current) use of aspirin; Z79.899 Other long term (current) drug therapy; Z88.0 Allergy status to penicillin; Z88.5 Allergy status to narcotic agent; Z95.0 Presence of cardiac pacemaker; Z96.642 Presence of left artificial hip joint; Z98.49 Cataract extraction status, unspecified eye; Z90.710 Acquired absence of both cervix and uterus; Z98.890 Other specified postprocedural states
CPT/HCPCS: 36415; 51702; 70450; 71010; 80048; 80053; 81001; 84484; 85025; 87086; 87088; 87186; 93005; 96361; 96365; 96366; 96372; 96374; 96375; 96376; 97162; 99285; A9270; G0378; J0696; J1630; J2060; J7040; 99284